=== PATIENT | female | born 1995 | race Caucasian/White ===

== ENCOUNTER 2019-01-26 07:25 | Day surgery (SDC) | payer OTHER ==
[~2019-01-26 07:25] MED LIST: Buffered Lidocaine 1% SYRIN* 1 ML/SYRINGE INTRADERM ONE; Lactated Ringers 1000 ML Bag* 1,000 ML IV SCH
[2019-01-26] MEDS ORDERED: Propofol* 10 MG/ML 20 ML BTL ONE (07:26)
[2019-01-26] MEDS ORDERED: fentaNYL* 50 MCG/ML 2 ML VIAL (100 MCG VIAL) ONE ×2 (07:26→10:00)
[2019-01-26] MEDS ORDERED: Lidocaine 2% PF * 5 ML VIAL ONE (07:26)
[2019-01-26] MEDS ORDERED: Midazolam* 1 MG/ML 2 ML VIAL (2 MG) ONE (07:26)
[2019-01-26] MEDS ORDERED: Succinylcholine* 20 MG/ML 10 ML VIAL ONE (09:15)
[2019-01-26] MEDS ORDERED: Metoclopramide IV* 5 MG/ML 2 ML VIAL ONE (09:28)
[2019-01-26] MEDS ORDERED: Ondansetron INJ* 2 MG/ML VIAL ONE (09:28)
[2019-01-26] MEDS ORDERED: Dexamethasone IV* 4 MG/ML 1 ML (4 MG) ONE (09:28)
[2019-01-26] MEDS ORDERED: Oxymetazoline 0.05% NASAL SPR* 15 ML BTL ONE (09:35)
[2019-01-26] MEDS ORDERED: Naloxone* 0.4 MG/ML 1 ML VIAL IV PRN (09:40)
[2019-01-26] MEDS ORDERED: oxyCODONE TAB* 5 MG TAB PO PRN (09:40)
[2019-01-26] MEDS ORDERED: DiMENhydriNATE IV* 50 MG/ML VIAL IV PUSH PRN (09:40)
[2019-01-26] MEDS: fentaNYL* 50 MCG/ML 2 ML VIAL (100 MCG VIAL) IV PRN ×4 (10:00→10:46)
[2019-01-26] MEDS ORDERED: oxyCODONE ORAL.SOLN* 5 MG/5 ML UDC PO PRN ×2 (10:30)
[2019-01-26] MEDS ORDERED: oxyCODONE ORAL.SOLN* 5 MG/5 ML UDC ONE (10:58)
[2019-01-26 11:25] VITALS: BP 134/100
--- NOTE | 2019-01-26 14:01 | OP ---
DATE OF OPERATION: 01/26/19 - SDS DATE OF : [birth year] SURGEON: Luis Saldivar MD AUDIT PARTNER: None. ANESTHESIA: General. PRE-OP DIAGNOSES: Adenoid hypertrophy and chronic adenoiditis. POST-OP DIAGNOSES: Adenoid hypertrophy and chronic adenoiditis. OPERATIVE PROCEDURE: Adenoidectomy. ESTIMATED BLOOD LOSS: Less than 10 cc. SPECIMENS: None. INDICATION: This is a 23-year-old woman who has had a chronic foreign body sensation in the nasopharynx and also associated chronic sense of postnasal drip. She was noted on exam to have an enlarged adenoid pad with purulent secretions adherent. She had tried a variety of different medical interventions including oral antibiotics and topical antibiotic irrigation without good symptomatic relief. A decision was made to proceed with adenoidectomy. DESCRIPTION OF PROCEDURE: On 01/26/19, the patient was brought to the operating room, general anesthesia was induced and an oral endotracheal tube was placed. The patient was draped with the table turned and a time-out was performed. A McIvor mouth gag was used to facilitate exposure of the oropharynx. A red rubber catheter was placed through the right nasal cavity, brought out through the mouth and used to retract the soft palate. The adenoid bed was inspected. The coblation device at the setting of 9 and 5 was used to vaporize redundant adenoid tissue from the region of the choana and eustachian tube orifices. Small amount of adenoid tissue was left present inferiorly in the region of [place] ridge. The hemostasis was obtained through a combination of topical Afrin and bipolar cautery. The patient was then returned to the care of the anesthesiologist, extubated, and delivered to the PACU in stable condition. [id number]/[facility] #: [id number] [facility]
== END 2019-01-26 11:27 | disposition home or self-care (01) ==
LOC: OR 07:25
PROVIDERS: ATTEND Otolaryngology
DX: J35.2 Hypertrophy of adenoids (principal); J31.1 Chronic nasopharyngitis; F31.9 Bipolar disorder, unspecified
CPT/HCPCS: 81025; A9270-GY; J0330; J1100; J2250; J2405; J2704; J2765; J3010